=== PATIENT | female | born 1965 | race Caucasian/White ===

== ENCOUNTER → 2022-09-07 | Outpatient (REF) | payer BC, SELFPAY ==
[2022-09-07 10:35] LABS: Hemoglobin 8.2 g/dL (12.0-15.0); Mean Corp Hgb Conc 31.5 g/dL (32-36); Mean Corpuscular Hgb 30.1 pg (27.0-32.0); Mean Corpuscular Volume 95.6 fL (81-99); Mean Platelet Vol. 8.5 fl (6.2-12.0); Platelet Count 528 K/mm3 (150-450); RBC Distribution Width CV 14.3 % (11.6-14.6); RBC Distribution Width SD 49.8 fl (35.1-43.9); Red Blood Count 2.72 M/mm3 (4.2-5.4); White Blood Count 9.5 K/mm3 (4.4-11.0)
[2022-09-07 10:41] LABS: Vitamin D,25 Hydroxy 39.9 ng/mL
[2022-09-07 11:10] LABS: Anion Gap 6 (5-15); BUN 16 mg/dL (7-18); BUN/Creat Ratio 18.4 RATIO (10-20); Calcium,Total 8.4 mg/dL (8.5-10.1); Chloride 101 mmol/L (98-107); Cholesterol 148 mg/dL (200); Creatinine, Serum 0.87 mg/dL (0.55-1.02); EST Glomerular Filtration Rate 71 mL/min (>60); Est Glom Filt Rate - Afr Amer 86 mL/min (>60); Glucose 109 mg/dL (74-106); Hemoglobin A1c 4.8 % (3.8-5.6); High Density Lipoprotein 76 mg/dL; Potassium 3.8 mmol/L (3.5-5.1); Sodium Level 134 mmol/L (136-145); Thyroid Stim Hormone (TSH) 5.69 uIU/mL (0.358-3.74); Triglycerides 123 mg/dL; Very Low Density Lipoprotein 25 mg/dL (5-40)
[2022-09-09 10:09] LABS: KEPPRA (LEVETIRACETAM) 54.4 ug/mL (10.0-40.0)
== END ==
LOC: OLS.ACW100 08:12
PROVIDERS: Visit Provider Family Medicine
DX: G40.89 Other seizures (principal); S09.90XD Unspecified injury of head, subsequent encounter; E55.9 Vitamin D deficiency, unspecified; D05.12 Intraductal carcinoma in situ of left breast; J45.909 Unspecified asthma, uncomplicated; E03.9 Hypothyroidism, unspecified; Z79.899 Other long term (current) drug therapy
CPT/HCPCS: 36415; 80048; 80061; 80177; 82306; 83036; 84443; 85027

== ENCOUNTER → 2022-09-12 | Outpatient (REF) | payer BC, SELFPAY ==
[2022-09-12 10:42] LABS: Anion Gap 3 (5-15); BUN 19 mg/dL (7-18); BUN/Creat Ratio 22.7 RATIO (10-20); Calcium,Total 8.3 mg/dL (8.5-10.1); Chloride 101 mmol/L (98-107); Creatinine, Serum 0.84 mg/dL (0.55-1.02); EST Glomerular Filtration Rate 74 mL/min (>60); Est Glom Filt Rate - Afr Amer 90 mL/min (>60); Glucose 86 mg/dL (74-106); Potassium 3.2 mmol/L (3.5-5.1); Sodium Level 136 mmol/L (136-145)
== END ==
LOC: OLS.ACW100 04:00
PROVIDERS: Referring Provider Family Medicine; Visit Provider Family Medicine
DX: G40.89 Other seizures (principal); D05.12 Intraductal carcinoma in situ of left breast; J45.909 Unspecified asthma, uncomplicated; E03.9 Hypothyroidism, unspecified; S09.90XD Unspecified injury of head, subsequent encounter
CPT/HCPCS: 36415; 80048

== ENCOUNTER → 2022-09-14 | Outpatient (REF) | payer BC, SELFPAY ==
[2022-09-14 07:54] LABS: Ferritin 76 ng/mL (8-252); Iron 19 ug/dL (50-170); Iron Binding Capacity,Total 256 ug/dL (250-450); PERCENT IRON SATURATION 7.4 % (15.0-55.0); Potassium 3.8 mmol/L (3.5-5.1)
[2022-09-14 08:20] LABS: BNP,B-Type NATRIURETIC PEPTIDE 417.2 pg/mL (0-100)
[2022-09-14 08:22] LABS: Vitamin B12 435 pg/mL (211-911)
== END ==
LOC: OLS.ACW100 05:00
PROVIDERS: Visit Provider Family Medicine
DX: G40.89 Other seizures (principal); D05.12 Intraductal carcinoma in situ of left breast; J45.909 Unspecified asthma, uncomplicated; E03.9 Hypothyroidism, unspecified; S09.90XD Unspecified injury of head, subsequent encounter
CPT/HCPCS: 36415; 82607; 82728; 83540; 83550; 83880; 84132

== ENCOUNTER → 2022-09-23 | Outpatient (REF) | payer BC, SELFPAY ==
[2022-09-23 09:07] LABS: Anion Gap 10 (5-15); BUN 8 mg/dL (7-18); BUN/Creat Ratio 11.9 RATIO (10-20); Calcium,Total 8.3 mg/dL (8.5-10.1); Chloride 97 mmol/L (98-107); Creatinine, Serum 0.67 mg/dL (0.55-1.02); EST Glomerular Filtration Rate 95 mL/min (>60); Est Glom Filt Rate - Afr Amer 115 mL/min (>60); Glucose 91 mg/dL (74-106); Potassium 2.9 mmol/L (3.5-5.1); Sodium Level 138 mmol/L (136-145)
== END ==
LOC: OLS.ACW100 05:00
PROVIDERS: Visit Provider Family Medicine
DX: G40.89 Other seizures (principal); S09.90XD Unspecified injury of head, subsequent encounter; D05.12 Intraductal carcinoma in situ of left breast; J45.909 Unspecified asthma, uncomplicated; E03.9 Hypothyroidism, unspecified
CPT/HCPCS: 36415; 80048

== ENCOUNTER → 2024-09-03 | Outpatient (REF) | payer BC, SELFPAY ==
[2024-09-04 07:47] LABS: Bacteria 0 SEEN /hpf (None Seen); Mucous, Urine 0 SEEN /hpf (<or=2+); Red Blood Cells-Urine 0 SEEN /hpf (0-5); Squamous Epithelial Cells - UA 0 SEEN /hpf (5-10); White Blood Cells 0 SEEN /hpf (0-5)
[2024-09-04 08:02] LABS: Color, Urine Yellow (Yellow); Glucose, Dipstick Normal (Normal); Ketone-Dipstick Negative (Negative); Leukocyte Esterase-Dipstick Negative /ul (Negative); Nitrite-Dipstick Negative (Negative); Occult Blood-Urine Negative /ul (Negative); Protein-Dipstick 15 mg/dl (Negative); Urine Bilirubin Dipstick Negative (Negative); Urine Clarity Clear (Clear); Urine Urobilinogen Normal (Normal); Urine pH 6.5 (5.0 - 8.0)
== END ==
LOC: OLS.ACW100 13:00
PROVIDERS: Visit Provider Family Medicine
DX: G40.89 Other seizures (principal); R53.1 Weakness; M62.81 Muscle weakness (generalized); D05.12 Intraductal carcinoma in situ of left breast
CPT/HCPCS: 81001; 87086; 87088

== ENCOUNTER → 2024-09-03 | Outpatient (REF) | payer BC, SELFPAY ==
[2024-09-03 08:21] LABS: Hematocrit 22.9 % (37-47); Hemoglobin 7.6 g/dL (12.0-15.0); Mean Corp Hgb Conc 33.2 g/dL (32-36); Mean Corpuscular Hgb 28.3 pg (27.0-32.0); Mean Corpuscular Volume 85.1 fL (81-99); Mean Platelet Vol. 8.4 fl (6.2-12.0); Platelet Count 496 K/mm3 (150-450); RBC Distribution Width CV 18.5 % (11.6-14.6); RBC Distribution Width SD 56.7 fl (35.1-43.9); Red Blood Count 2.69 M/mm3 (4.2-5.4); White Blood Count 8.7 K/mm3 (4.4-11.0)
[2024-09-03 09:59] LABS: ALB/GLOB Ratio 0.9 RATIO (0.9-2.4); AST(SGOT) 217 U/L (<=31); Alanine Aminotransfer ALT/SGPT 142 U/L (<=34); Albumin, Serum 2.1 g/dL (3.4-4.8); Alkaline Phosphatase 466 U/L (35-104); Anion Gap 10 (5-15); BUN 8 mg/dL (4-19); BUN/Creat Ratio 11.4 RATIO (10-20); Bilirubin, Direct 0.38 mg/dL (0.00-0.30); Calcium,Total 8.1 mg/dL (7.6-11.0); Carbon Dioxide 23.2 mmol/L (21.0-32.0); Chloride 97 mmol/L (98-108); Creatinine, Serum 0.74 mg/dL (0.70-1.20); EST Glomerular Filtration Rate 93 (>60); Globulin 2.2 g/dL (2.2-4.2); Glucose 77 mg/dL (70-99); Potassium 3.6 mmol/L (3.3-5.1); Protein, Total 4.3 g/dL (5.9-8.4); Sodium Level 130 mmol/L (133-145); Total Bilirubin 0.49 mg/dL (0.00-1.30); Vitamin D,25 Hydroxy 56.9 ng/mL (30-100)
[2024-09-03 10:25] LABS: Hemoglobin A1c 5.1 % (<=5.6)
[2024-09-03 10:34] LABS: Cholesterol 159 mg/dL (<=200); High Density Lipoprotein 90 mg/dL; Low Density Lipoprotein Calc. 58 mg/dL; Triglycerides 56 mg/dL; Very Low Density Lipoprotein 11 mg/dL (5-40); cholesterol:hdl ratio screen 1.77
== END ==
LOC: OLS.ACW100 04:00
PROVIDERS: Referring Provider Family Medicine; Visit Provider Family Medicine
DX: G40.89 Other seizures (principal); M62.81 Muscle weakness (generalized); R27.9 Unspecified lack of coordination; R53.1 Weakness; D05.12 Intraductal carcinoma in situ of left breast
CPT/HCPCS: 36415; 80053; 80061; 82248; 82306; 83036; 84443; 85027

== ENCOUNTER → 2024-09-06 | Outpatient (REF) | payer BC, SELFPAY ==
[2024-09-06 08:27] LABS: ALB/GLOB Ratio 0.9 RATIO (0.9-2.4); Albumin, Serum 2.1 g/dL (3.4-4.8); Anion Gap 9 (5-15); BUN 2 mg/dL (4-19); Calcium,Total 7.7 mg/dL (7.6-11.0); Carbon Dioxide 23.2 mmol/L (21.0-32.0); Chloride 99 mmol/L (98-108); EST Glomerular Filtration Rate 103 (>60); Globulin 2.3 g/dL (2.2-4.2); Glucose 97 mg/dL (70-99); Potassium 3.2 mmol/L (3.3-5.1); Protein, Total 4.4 g/dL (5.9-8.4); Sodium Level 131 mmol/L (133-145)
== END ==
LOC: OLS.ACW100 05:00
PROVIDERS: Visit Provider Family Medicine
DX: S32.592D Other specified fracture of left pubis, subsequent encounter for fracture with routine healing (principal); S22.42XD Multiple fractures of ribs, left side, subsequent encounter for fracture with routine healing; S27.1XXD Traumatic hemothorax, subsequent encounter
CPT/HCPCS: 36415; 80048; 82040; 84155

== ENCOUNTER → 2024-09-10 | Outpatient (REF) | payer BC, SELFPAY ==
[2024-09-10 09:47] LABS: Anion Gap 8 (5-15); BUN 4 mg/dL (4-19); BUN/Creat Ratio 5.7 RATIO (10-20); Carbon Dioxide 24.3 mmol/L (21.0-32.0); Chloride 99 mmol/L (98-108); Creatinine, Serum 0.64 mg/dL (0.70-1.20); EST Glomerular Filtration Rate 101 (>60); Glucose 79 mg/dL (70-99); Potassium 3.5 mmol/L (3.3-5.1); Sodium Level 131 mmol/L (133-145)
== END ==
LOC: OLS.ACW100 04:00
PROVIDERS: Visit Provider Family Medicine
DX: S32.592D Other specified fracture of left pubis, subsequent encounter for fracture with routine healing (principal); S22.42XD Multiple fractures of ribs, left side, subsequent encounter for fracture with routine healing; S27.1XXD Traumatic hemothorax, subsequent encounter
CPT/HCPCS: 36415; 80048